=== PATIENT | female | born 1980 | race Caucasian/White ===

== ENCOUNTER 2016-11-25 08:53 | Observation (INO) | payer OTHER ==
--- NOTE | ~2016-11-25 | HP ---
Unit #: [id number] #: [id number] Patient: KANE IGNACIO [id number] [address] [place], [place] [address] [id number] MR#: [id number] NAME: KANE IGNACIO ROOM: 07097 Age: Sex: F Admission Date: 11/25/2016 : 1980 Attending Physician: Pascale Simpson M.D. Referring Physician: Pascale Simpson M.D. Primary Care Physician: Narda Rueda HISTORY AND PHYSICAL DATE OF ADMISSION 11/25/2016 CHIEF COMPLAINT Left ankle pain. HISTORY OF PRESENT ILLNESS The patient is a 36-year-old female who was treated with left ankle open reduction internal fixation in 2005 at the [facility]. Hardware was removed except for a broken screw. She now complains of ongoing limp, swelling and significant pain. She has been treated by a instrument fitter, Dr. Daly, with multiple cortical steroid injections and a Patricio brace. She also uses Harrison 7.5 mg p.o. t.i.d., gabapentin and muscle relaxers. The patient has joint space loss of the ankle joint with 8 degrees of valgus. She has a broken screw in the distal tibia 4 cm above the ankle joint line. She has failed to respond to conservative care and is therefore admitted for left ankle fusion through an anterolateral approach. Will use proximal tibial autogenous graft as well. PAST MEDICAL HISTORY 1. Obesity. 2. Bipolar disease. 3. Depression. 4. Anxiety. 5. Chronic neck pain. 6. Chronic low back pain. 7. Fibromyalgia. 8. History of alcohol abuse. PAST SURGICAL HISTORY 1. Gastric bypass. 2. Gastric band. 3. Left ankle ORIF. 4. Left ankle hardware removal. HOME MEDICATIONS 1. Amitriptyline. 2. Cymbalta. 3. Diclofenac. 4. Fluticasone. 5. Gabapentin. 6. Lamotrigine. 7. Latuda. 8. Loratadine. Unit #: [id number] #: [id number] Patient: KANE IGNACIO 9. Mirapex. 10. Robaxin. 11. Topamax. 12. Trazodone. 13. Harrison 7.5 mg p.o. t.i.d. ALLERGIES None. SOCIAL HISTORY The patient is unemployed. She denies smoking. She drinks alcohol socially. FAMILY HISTORY Bipolar disease, depression, hypertension, colon cancer, alcohol abuse. REVIEW OF SYSTEMS Unremarkable. PHYSICAL EXAMINATION GENERAL: This is an obese female in no acute distress. HEENT: Pharynx is clear. NECK: Supple without masses. HEART: Regular sinus rhythm without murmurs or gallops. LUNGS: Clear. ABDOMEN: Soft and nontender without masses or organomegaly. LEFT ANKLE: Demonstrates a well-healed medial and lateral longitudinal incision. She has moderate swelling. Ankle dorsiflexion is 5 degrees, plantar flexion 40 degrees, subtalar inversion 20 degrees, eversion 10 degrees. First MTP joint motion is normal. The heel is neutral. The arch is normal. Sensation is normal, pulses are normal. Motor exam is normal. The patient is maximally tender over the anterior aspect of the tibiotalar joint. DIAGNOSTIC STUDIES IMAGING: Standing x-rays of the left ankle show loss of the superior lateral tibial talar joint space with 8 degrees of tibiotalar valgus. There is a broken screw in the distal tibia 4 cm proximal to the ankle joint line. 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 PLAN The patient has failed conservative care. She has pain with activities of daily living. She requires oral narcotics for pain relief. She is therefore admitted for a left ankle fusion through an anterolateral approach utilizing proximal tibial bone graft. This procedure was described along with the risks of bleeding, infection, nerve damage, nonunion, malunion, need for further surgery in the future, prolonged recovery time, deep venous thrombosis, pulmonary embolism and anesthetic complications. She understands the above risks and agrees to proceed. Unit #: [id number] #: [id number] Patient: KANE IGNACIO Dictated by Tahir Mi/franklin TD: 11/24/2016 21:06 JOB #: [id number] HISTORY AND PHYSICAL X Darwin Simpson MD X HISTORY AND PHYSICAL
--- NOTE | ~2016-11-25 | DS ---
Unit #: [id number] #: [id number] Patient: KANE IGNACIO [id number] [address] [address] [id number] I MR#: [id number] NAME: KANE IGNACIO ROOM: 453 Age: 36 Sex: F Admission Date: 11/25/2016 : 1980 Discharge Date: 11/26/2016 Attending Physician: Pascale Simpson M.D. Referring Physician: Pascale Simpson M.D. Primary Care Physician: Narda Rueda DISCHARGE SUMMARY SERVICE Orthopedic surgery. PREOPERATIVE DIAGNOSIS Left ankle posttraumatic arthritis unresponsive to conservative care. POSTOPERATIVE DIAGNOSIS Left ankle posttraumatic arthritis unresponsive to conservative care. DISCHARGE DIAGNOSIS Left ankle posttraumatic arthritis unresponsive to conservative care. REASON FOR ADMISSION The patient was postoperative after undergoing an operative left ankle fusion with proximal tibial bone graft harvest. CHIEF COMPLAINT Left ankle pain. HISTORY OF PRESENT ILLNESS The patient is a 36-year-old female, who was treated with left ankle open reduction and internal fixation in 2005 at the [facility]. Hardware was removed except for a broken screw. She now complains of an ongoing limb swelling and significant pain. She was treated by a local business support coordinator, Dr. Daly with multiple steroid injections in her vertebrae. She also uses [place] 7.5 p.o. t.i.d., gabapentin, and muscle relaxers. For control of pain which she sees pain management for. The patient has joint space loss within ankle in about 8 degrees of valgus. She has a broken screw in the distal tibia about 4 cm above the ankle joint line. She has failed all conservative management, and was therefore, admitted for left ankle fusion through an anterolateral approach and we will also use proximal tibial autogenous bone graft to augment our fusion. PAST MEDICAL HISTORY Obesity, bipolar disease, depression, anxiety, chronic neck pain, chronic low back pain, fibromyalgia, history of alcohol abuse. PAST SURGICAL HISTORY Gastric bypass, gastric band, left ankle open reduction and internal fixation, left ankle hardware removal. HOME MEDICATIONS Unit #: [id number] #: [id number] Patient: KANE IGNACIO Amitriptyline, Cymbalta, diclofenac, fluticasone, gabapentin, lamotrigine, Latuda, loratadine, Mirapex, Robaxin, Topamax, trazodone, [place] 7.5 mg t.i.d. ALLERGIES None. SOCIAL HISTORY The patient is currently unemployed. She denies any tobacco. She does drink alcohol socially. FAMILY HISTORY Bipolar, depression, hypertension, colon cancer, alcohol abuse. REVIEW OF SYSTEMS Unremarkable. PHYSICAL EXAMINATION GENERAL: Alert and oriented x3. LUNGS: Clear to auscultation bilaterally. HEART: Regular rate and rhythm. ABDOMEN: Soft, nontender. EXTREMITIES: Focused lower extremity examination. DERMATOLOGIC: Dressings were clean dry and intact with no strike through noted. NEUROLOGIC: Sensation intact to the left lower extremity. VASCULAR: Capillary refill time was under 3 seconds to the left foot digits with palpable pulses. Negative Homans sign bilaterally. MUSCULOSKELETAL: The patient was able to wiggle the digits of her left lower extremity. The ankle was in a rigid locked neutral position. DIAGNOSTIC STUDIES LABORATORY RESULTS: None. ASSESSMENT AND PLAN/HOSPITAL COURSE The patient is a 36-year-old female, who on 11/25/2016 underwent left ankle joint fusion with proximal tibial bone graft autograft harvest for augmentation of the fusion site. She was subsequently admitted to the hospital after for postoperative pain control and observation. On postop day #1, she was evaluated, where her dressings were clean, dry, and intact. Her neurovascular status was intact as well as her motor sensation, her motor function to her operative limb. Physical therapy evaluated the patient on postoperative day #1, she was cleared to be nonweightbearing to her operative limb as well as use of a knee scooter. On postop day #1, her IV pain medications were discontinued. She was transitioned to oral medications. Her vital signs were stable and on 11/26/2016, the patient was discharged from the hospital without any noted complications in healthy satisfactory condition. The patient will have follow up with Dr. Simpson in 10 days. At that period of time, the dressings will be removed, the incision will be checked, and she will be continued in a nonweightbearing status for the next 10 to 11 weeks. DISCHARGE MEDICATIONS Percocet 5/325 mg take one tablet by mouth every 6 hours as needed for pain, dispensed #40 with no refills. Xarelto 10 mg one tablet by mouth once daily for x2 weeks for DVT prophylaxis. DISCHARGE INSTRUCTIONS Unit #: [id number] #: [id number] Patient: KANE IGNACIO The patient is to be strictly nonweightbearing to the operative limb (left lower extremity). She is to use her knee scooter for mobilization around her home. She is to keep her dressings clean, dry, and intact. She is not to soak, submerge, or shower her operative limb. FOLLOWUP Followup appointment with Dr. Simpson in 10 days at his office at [facility] [address] at [facility]. DISPOSITION Home. CONDITION Stable. Dictated by... Danilo Nur M.D. for Tahir Mi/libby TD: 11/27/2016 03:18 JOB #: [id number] DISCHARGE SUMMARY X X DISCHARGE SUMMARY
--- NOTE | ~2016-11-25 | OR ---
Unit #: [id number] #: [id number] Patient: KANE IGNACIO [id number] [address] [place], [place] [address] [id number] MR#: [id number] NAME: KANE IGNACIO ROOM: 453 Date of Procedure: 11/25/2016 Admission Date: 11/25/2016 Surgeon: Pascale Simpson M.D. : 1980 Attending Physician: Pascale Simpson M.D. Referring Physician: Pascale Simpson M.D. Primary Care Physician: Narda Rueda OPERATIVE REPORT PREOPERATIVE DIAGNOSIS Left ankle degenerative arthritis. POSTOPERATIVE DIAGNOSIS Left ankle degenerative arthritis. PROCEDURES PERFORMED 1. Left ankle fusion (41422). 2. Left proximal tibial bone graft (39632). ASSISTANTS MD Diallo and MARISELA Nur. ANESTHESIA Popliteal saphenous block and general. INDICATIONS FOR SURGERY This is 36-year-old female with posttraumatic left ankle arthritis. Has failed to respond to conservative care. She is morbidly obese and has failed to respond to injections, medication, bracing, and currently takes oral narcotics to control her pain. She is therefore to undergo ankle fusion. DESCRIPTION OF PROCEDURE The patient underwent left popliteal saphenous block. She was taken to the operating room and placed in supine position and general anesthetic was induced. The left ankle was identified as the correct operative location during the time-out procedure. The IV antibiotic protocol was followed. The left leg was then prepped and draped in usual sterile fashion. The leg was exsanguinated and the thigh tourniquet inflated to 300 mmHg. An 8 cm anterolateral longitudinal incision was made over the ankle. Subcutaneous tissue was divided. The superficial peroneal nerve was identified and preserved. The extensor retinaculum was opened. The extensor musculature was retracted medially. The joint was opened longitudinally and was exposed subperiosteally. The joint was distracted with a laminar raw finish mill operator. The power osteotome, curved curettes, and rongeurs were utilized to remove the articular cartilage from both sides of the joint. The underlying subchondral bone was feathered with the power osteotome. A 4 cm curvilinear incision was made over the proximal lateral tibia. The subcutaneous tissue was divided. The extensor fascia was opened. The Unit #: [id number] #: [id number] Patient: KANE IGNACIO lateral cortex of the proximal tibia was exposed subperiosteally. A 1 x 2 cm cortical window was made. A large amount of cancellous graft was harvested with the curved curette and this was packed into the tibiotalar fusion site. The joint was then held in neutral dorsiflexion and fixated with three OrthoHelix 7.0 mm diameter cannulated screws. One screw was placed from proximal medial to distal lateral, a second was placed from proximal lateral to distal medial, and a third was placed from posterior to anterior. Excellent fixation was achieved. The proximal tibial donor site was then irrigated and then packed with allograft, cancellous bone chips. The cortical window was replaced. The tourniquet was released with a total tourniquet time of 65 minutes. Bleeding was controlled with electrocautery. The extensor retinaculum was closed with 2-0 Vicryl. Subcutaneous tissue was closed with 3-0 Vicryl and the skin was closed with 3-0 nylon horizontal mattress sutures. The extensor fascia overlying the proximal tibia was likewise closed with 2-0 Vicryl [id number] sutures. Subcutaneous tissue was closed with 3-0 Vicryl and the skin was closed with interrupted 3-0 nylon horizontal mattress sutures. Xeroform gauze, dressing, sponges, Webril, posterior fiberglass splint, and Josh wraps were applied. The patient was then transported to the recovery room in stable condition. ESTIMATED BLOOD LOSS Minimal. COMPLICATIONS None. SPECIMENS None. TOURNIQUET TIME 65 minutes. Dictated by.Tahir Moore/libby TD: 11/25/2016 18:23 JOB #: [id number] OPERATIVE REPORT X Darwin Simpson MD X PROCEDURE OPERATIVE NOTE
[~2016-11-25 08:53] MED LIST: AMITRIPTYLINE H25 MG PO; AMITRIPTYLINE100 MG PO; CITALOPRAM HBR40 M1; CLARITIN10 M2 PO; CYMBALTA PO; DULOXETINE HCL60 MG PO; HYDROCODONE/APA1 T16 PO; LAMICTAL100 MG PO; LOW OGESTREL; MIRAPEX0.25 MG PO; NEURONTIN300 MG PO; ROBAXIN 750750 M1 PO; TOPAMAX200 MG PO; TRAZODONE HCL100 MG PO; ZANAFLEX4 M1 PO
[2016-11-26] MEDS ORDERED: XARELTO10 MG PO (09:59)
[2016-11-26] MEDS ORDERED: PERCOCET 5/321 UDTAB PO (10:00)
== END 2016-11-26 14:58 | disposition home or self-care (01) ==
LOC: CSUR 08:53 → CPACUOF 10:07 → C4B 15:15
PROVIDERS: Orthopaedic Surgery
PROC: 0SGG04Z Fusion of Left Ankle Joint with Internal Fixation Device, Open Approach (ICD-10-PCS; principal; 2016-11-25 11:00)
DX: M19.172 Post-traumatic osteoarthritis, left ankle and foot (principal); E66.01 Morbid (severe) obesity due to excess calories; Z68.41 Body mass index [BMI] 40.0-44.9, adult; Z98.84 Bariatric surgery status; M54.5 Low back pain; F31.9 Bipolar disorder, unspecified; F32.9 Major depressive disorder, single episode, unspecified; F41.9 Anxiety disorder, unspecified; M54.2 Cervicalgia; M79.7 Fibromyalgia; Z79.899 Other long term (current) drug therapy; Z87.898 Personal history of other specified conditions; Z98.890 Other specified postprocedural states; Z81.1 Family history of alcohol abuse and dependence; Z82.49 Family history of ischemic heart disease and other diseases of the circulatory system; Z80.0 Family history of malignant neoplasm of digestive organs; Z81.8 Family history of other mental and behavioral disorders
CPT/HCPCS: 84703; 94010; 94760; 96365; 96366; 96375; 97162; 97530; C1713; G0378; J0330; J0690; J2250; J2270; J2405; J2710; J2795; J3010